=== PATIENT | female | born 2005 | race Two or more races ===

== ENCOUNTER → 2024-10-11 | Outpatient (CLI) | payer MEDICAID, SELFPAY ==
--- NOTE | 2024-10-11 11:30 | XR_ITS ---
Examination: Pelvic ultrasound, transabdominal, complete Technique: Transabdominal ultrasound of the pelvis performed using grayscale imaging Date and time of exam: October 11, 2024 1118 hours INDICATIONS: Irregular menses 9 months FINDINGS: Uterus 5.4 cm endometrial stripe 0.2 cm No uterine mass or intrauterine gestation Ovaries obscured by bowel gas IMPRESSION: No uterine mass or intrauterine gestation
== END | disposition home or self-care (01) ==
PROVIDERS: PCP Nurse Practitioner Family; Referring Provider Obstetrics & Gynecology; Visit Provider Obstetrics & Gynecology
DX: N92.6 Irregular menstruation, unspecified (principal)
CPT/HCPCS: 76856